=== PATIENT | female | born 1960 | race Caucasian/White ===

== ENCOUNTER 2018-03-28 06:36 | Day surgery (SDC) | payer OTHER ==
[~2018-03-28] VITALS: Ht 167.6 cm; Wt 58.1 kg
[~2018-03-28 06:36] MED LIST: CALCIUM 500 +1 EACH PO; CEFTIN500 MG PO; VAGIFEM10 MCG VG; VITAMIN D32000 UNI1 PO
[2018-03-28 07:14] VITALS: BP 109/61
[2018-03-28 10:13] VITALS: BP 116/69
[2018-03-28 11:06] VITALS: BP 105/59
== END 2018-03-28 11:19 | disposition home or self-care (01) ==
LOC: SDC 06:36
PROC: 0UDB8ZX Extraction of Endometrium, Via Natural or Artificial Opening Endoscopic, Diagnostic (ICD-10-PCS; principal; 2018-03-28)
DX: N95.0 Postmenopausal bleeding (principal); E03.9 Hypothyroidism, unspecified
CPT/HCPCS: 88305; J0690; J1100; J1885; J2250; J2405; J3010